=== PATIENT | female | born 1960 | race Caucasian/White ===

== ENCOUNTER 2016-12-14 18:56 | Emergency (ER) | payer MEDICARE, OTHER ==
[2016-12-14] MEDS ORDERED: Metoclopramide HCl 10 MG/2 ML VIAL ONE (19:22)
[2016-12-14] MEDS ORDERED: diphenhydrAMINE HCl 50 MG/ML 1 ML VIAL ONE (19:22)
[2016-12-14 19:43] LABS: #Basophils 0.1 thou/uL (0.0-0.2); #Eosinphils 0.2 thou/uL (0.0-0.7); #Lymphocytes 2.3 thou/uL (1.20-3.40); #Monocytes 0.6 thou/uL (0.11-0.59); #Neutrophils 4.1 thou/uL (1.40-6.50); %Eosinophils 2.8 % (0.0-10.0); %Lymphocytes 31.1 % (21.0-51.0); %Monocytes 8.3 % (0.0-10.0); %Neutrophils 56.8 % (42.0-75.0); Mean Corpuscular HGB CONC 33.3 g/dL (32.0-36.0); Mean Corpuscular Hemoglobin 27.9 pg (27.0-31.0); Mean Platelet Volume 8.3 fL (7.4-10.4); Platelet Count 231 thou/uL (130-400); RBC Distribution Width 13.4 % (11.5-14.5); Red Blood Cell (RBC) Count 3.58 mill/uL (4.20-5.40); White Blood Cell (WBC) Count 7.2 thou/uL (4.8-10.8)
[2016-12-14 19:45] LABS: Clarity Clear (Clear); Glucose, Urine (Dipstick) >=1000 mg/dL (Negative); Leukocyte Negative (Negative); Nitrite Negative (Negative); Protein, Urine (Dipstick) Negative (Neg-Trace); Urobilinogen 0.2 mg/dL (0.2-1.0)
[2016-12-14 19:46] LABS: Bilirubin Negative (Negative); Blood, Urine Negative (Negative)
[2016-12-14 19:51] LABS: Amphetamine Not Detected (NotDetected); Benzodiazepine Screen Not Detected (NotDetected); Cocaine Metabolite Screen Not Detected (NotDetected); Methadone Not Detected (NotDetected); Methamphetamine Not Detected (NotDetected); Opiate Screen Detected (NotDetected); Phencyclidine (PCP) Not Detected (NotDetected); THC/Cannabinoid Screen Not Detected (NotDetected); Tricyclic Screen Detected (NotDetected)
[2016-12-14 19:52] LABS: Barbiturates Screen Not Detected (NotDetected); Medtox Control Line Valid? VALID (VALID); Oxycodone Screen Not Detected (NotDetected)
[2016-12-14 19:57] LABS: ALT (SGPT) 13 U/L (8-55); AST (SGOT) 17 U/L (5-34); Albumin 3.1 g/dL (3.5-5.0); Alkaline Phosphatase 160 U/L (40-150); Anion Gap 12 mmol/L (10-20); BUN (Urea Nitrogen) 12 mg/dL (9.8-20.1); Bilirubin, Total Less than 0.3 mg/dL (0.2-1.2); CK (CPK) 25 U/L (29-168); Calc. Creatinine Clearance 0 mL/min (70-130); Calcium 8.3 mg/dL (7.8-10.44); Carbon Dioxide 27 mmol/L (22-29); Chloride 107 mmol/L (98-107); Estimated GFR-MDRD 81; Globulin 3.1 g/dL (2.4-3.5); Glucose 236 mg/dL (70-105); Protein, Total 6.2 g/dL (6.0-8.3); Sodium 142 mmol/L (136-145)
[2016-12-14 19:59] LABS: CKMB 0.8 ng/mL (0-6.6); Troponin I Less than 0.010 ng/mL (< 0.028)
--- NOTE | 2016-12-14 20:24 | RAD ---
THREE VIEWS OF THE LEFT SHOULDER 12/14/16 COMPARISON: None. HISTORY: Pain. FINDINGS: There is no widening of the AC or CC interspace. No displaced fracture noted. No evidence for disloc ation. IMPRESSION: No acute findings. POS: [facility]
--- NOTE | 2016-12-14 20:26 | CT ---
HEAD CT WITHOUT CONTRAST 12/14/16 COMPARISON: 08/03/16 HISTORY: Trauma, pain. TECHNIQUE: Serial axial CT imaging is obtained at 5 mm intervals from vertex through skull base without contras t. FINDINGS: The imaged paranasal sinuses and mastoid air cells are well aerated. There is no displaced calvarial fracture. No intracranial hemorrhage, midline shift, mass effect, or ventricular enlargement is seen. IMPRESSION: No intracranial hemorrhage or displaced calvarial fracture noted. POS: [facility]
--- NOTE | 2016-12-14 20:29 | CT ---
CT OF THE CERVICAL SPINE 12/14/16 COMPARISON: None. HISTORY: Trauma, pain. TECHNIQUE: Serial axial CT imaging at 2.5 mm intervals from the skull base through the lung apices without cont rast. Coronal and sagittal reformatted imaging obtained. FINDINGS: Anterior discectomy and fusion hardware is present at the C4-5/C5-6 levels. The C1 ring is intact. There is degenerative change at the atlantoaxial interspace. The craniocervic al junction is intact. The dens, occipital condyles, and C1-2 articulation demonstrate no acute find ings, There is no anterolisthesis or retrolisthesis seen within the cervical spine. No acute fracture or evidence of hardware failure is seen. Imaged lung apices are unremarkable. There is anterior osteophyte formation and disc space narrowing at C3-4. There is mild posterior ost eophyte formation at C4-5 and C5-6. There is left sided facet hypertrophy at the C7-T1 level. IMPRESSION: Postoperative and degenerative changes within the cervical spine. No displaced fracture or evidence of dislocation seen. POS: [facility]
[2016-12-14] MEDS ORDERED: Ketorolac Tromethamine 30 MG/ML VIAL ONE (20:32)
--- NOTE | 2016-12-14 20:35 | CT ---
CT OF THE THORACIC SPINE 12/14/16 COMPARISON: None. HISTORY: Trauma, pain. TECHNIQUE: Serial axial CT imaging is obtained at 2.5 mm intervals through the thoracic spine without contrast. Coronal and sagittal reformatted imaging obtained. FINDINGS: Evaluation of the extraosseous structures is limited without contrast media. There is an incompletely imaged suture line associated with the stomach. The imaged lung parenchyma is grossly unremarkable. There is scattered areas of lateral osteophyte formation and anterior osteophyte formation within th e thoracic spine, primarily the mid/lower thoracic spine. Sagittal reformatted imaging demonstrates normal vertebral body height and alignment throughout the thoracic spine. Multiple subcentimeter nonobstructing bilateral renal calculi are noted. No acute thoracic spine fracture or dislocation is evident. IMPRESSION: No acute fracture or dislocation is seen involving the thoracic spine. Numerous incidental findings as detailed above. POS: [facility]
--- NOTE | 2016-12-14 20:41 | CT ---
LUMBAR SPINE CT NONCONTRAST 12/14/16 CLINICAL HISTORY: Posttraumatic pain. FINDINGS: There is mild left convexity curvature of the lumbar spine. There is no evidence of acute compressio n fracture. Trace spondylolisthesis at the L4-5 level is present. Multilevel end plate degenerative changes are present, greatest at the L2-3 and L5-S1 level. The gas vacuum phenomenon at L5-S1. Multi level facet osteoarthritis is present. There is no retropulsion of bone into the vertebral canal. Incidental note of bilateral nephrolithiasis. There is vascular calcification. IMPRESSION: No acute lumbar spine fracture. POS: [facility]
--- NOTE | 2016-12-14 20:45 | RAD ---
TWO VIEWS LEFT HIP 12/14/16 COMPARISON: None. HISTORY: Left hip pain. FINDINGS: There is mild lateral acetabular osteophyte formation and superior joint space narrowing. There is n o displaced fracture or dislocation seen. IMPRESSION: Mild degenerative joint disease. No acute fracture or dislocation noted. POS: [facility]
--- NOTE | 2016-12-14 20:48 | RAD ---
FOUR VIEWS LEFT KNEE 12/14/16 COMPARISON: 02/25/15. HISTORY: Pain, trauma. FINDINGS: Stable left total knee arthroplasty. No evidence for hardware failure. No fracture or dislocation. N o interval change. IMPRESSION: Stable left total knee arthroplasty. No evidence for acute fracture or dislocation is seen. POS: [facility]
--- NOTE | 2016-12-14 20:51 | RAD ---
THREE VIEWS OF THE RIGHT WRIST 12/14/16 COMPARISON: None. HISTORY: Wrist pain. FINDINGS: There is degenerative change at the first metacarpophalangeal joint. There is mild radiocarpal joint space narrowing. There is no widening of the scapholunate interval. No displaced fracture or disloc ation is seen. IMPRESSION: No acute osseous abnormality. If symptoms persists, followup in 7-10 days with dedicated scaphoid vi ews advised. POS: [facility]
[2016-12-14] MEDS ORDERED: Amitriptyline HCl 25 MG TAB PO SCH (21:00)
== END 2016-12-14 21:55 | disposition home or self-care (01) ==
LOC: MADERS 18:56
DX: S40.012A Contusion of left shoulder, initial encounter (principal); S70.02XA Contusion of left hip, initial encounter; M25.562 Pain in left knee; G43.809 Other migraine, not intractable, without status migrainosus; E11.40 Type 2 diabetes mellitus with diabetic neuropathy, unspecified; K21.9 Gastro-esophageal reflux disease without esophagitis; M10.9 Gout, unspecified; F41.9 Anxiety disorder, unspecified; F32.9 Major depressive disorder, single episode, unspecified; Z79.899 Other long term (current) drug therapy; Z79.4 Long term (current) use of insulin; W01.190A Fall on same level from slipping, tripping and stumbling with subsequent striking against furniture, initial encounter
CPT/HCPCS: 51701; 70450; 72125; 72128; 72131; 80053; 80306; 81003; 82550; 82553; 84484; 85025; 93005; 96374; 96375; A4353; J1200; J1885; J2765

== ENCOUNTER 2017-01-30 15:05 | Emergency (ER) | payer MEDICARE, OTHER ==
[2017-01-30] MEDS ORDERED: diphenhydrAMINE HCl 25 MG CAP ONE (16:00)
== END 2017-01-30 16:00 | disposition home or self-care (01) ==
LOC: MADERS 15:05
DX: H57.8 Other specified disorders of eye and adnexa (principal); E11.40 Type 2 diabetes mellitus with diabetic neuropathy, unspecified; K21.9 Gastro-esophageal reflux disease without esophagitis; M10.9 Gout, unspecified; F41.9 Anxiety disorder, unspecified; F32.9 Major depressive disorder, single episode, unspecified; Z79.4 Long term (current) use of insulin; Z86.718 Personal history of other venous thrombosis and embolism
CPT/HCPCS: 99283

== ENCOUNTER 2017-02-05 08:30 | Outpatient (CLI) | payer MEDICARE, OTHER ==
[2017-02-05 09:49] LABS: Hemoglobin A1c 8.8 % (4.0-6.0)
[2017-02-05 10:36] LABS: ALT (SGPT) 10 U/L (8-55); AST (SGOT) 13 U/L (5-34); Albumin 3.3 g/dL (3.5-5.0); Alkaline Phosphatase 134 U/L (40-150); Anion Gap 12 mmol/L (10-20); BUN (Urea Nitrogen) 19 mg/dL (9.8-20.1); Bilirubin, Total 0.5 mg/dL (0.2-1.2); Calc. Creatinine Clearance 0 mL/min (70-130); Calcium 9.1 mg/dL (7.8-10.44); Carbon Dioxide 32 mmol/L (22-29); Cardiac Risk 3.6 (Less than 4.5); Chloride 102 mmol/L (98-107); Cholesterol 153 mg/dl (< 200 Desired); Estimated GFR-MDRD 65; Globulin 3.4 g/dL (2.4-3.5); Glucose 114 mg/dL (70-105); HDL Cholesterol 42 mg/dL (>60 Neg Risk); LDL Cholesterol, Calculated 98 mg/dL; Potassium 4.3 mmol/L (3.5-5.1); Protein, Total 6.7 g/dL (6.0-8.3); Sodium 142 mmol/L (136-145); Triglycerides 63 mg/dL (Less than 150)
[2017-02-05 18:07] LABS: Creatinine, Urine 188.59 mg/dL (47-110); Microalbumin Urine Less than 1.0 mg/dL (0.5-50.0); Microalbumin/Creat Ratio 5.3 mg/g (Less than 30)
== END 2017-02-05 08:31 | disposition home or self-care (01) ==
LOC: MADLAB 08:30
PROVIDERS: ATTEND Family Medicine
DX: E11.9 Type 2 diabetes mellitus without complications (principal)
CPT/HCPCS: 36415; 80053; 80061; 82043; 83036

== ENCOUNTER 2017-11-15 20:49 | Emergency (ER) | payer MEDICARE, BC ==
[2017-11-15] MEDS ORDERED: Clindamycin 150 MG CAP ONE (21:05)
[2017-11-15] MEDS ORDERED: Ondansetron ODT 4 MG TAB ONE ×2 (21:08→21:10)
== END 2017-11-15 21:10 | disposition home or self-care (01) ==
LOC: MADERS 20:49
DX: K13.0 Diseases of lips (principal); K02.9 Dental caries, unspecified; M79.7 Fibromyalgia; G89.29 Other chronic pain; M54.2 Cervicalgia; G47.30 Sleep apnea, unspecified; E11.40 Type 2 diabetes mellitus with diabetic neuropathy, unspecified; Z79.4 Long term (current) use of insulin; G56.00 Carpal tunnel syndrome, unspecified upper limb; K58.9 Irritable bowel syndrome, unspecified
CPT/HCPCS: 99283; Q0162

== ENCOUNTER 2018-01-07 08:15 | Outpatient (CLI) | payer BC, MEDICARE ==
[2018-01-07 09:02] LABS: ALT (SGPT) 13 U/L (8-55); AST (SGOT) 13 U/L (5-34); Albumin 3.6 g/dL (3.5-5.0); Alkaline Phosphatase 124 U/L (40-150); Anion Gap 13 mmol/L (10-20); BUN (Urea Nitrogen) 17 mg/dL (9.8-20.1); Bilirubin, Total 0.5 mg/dL (0.2-1.2); Calc. Creatinine Clearance 0 mL/min (70-130); Calcium 9.2 mg/dL (7.8-10.44); Carbon Dioxide 27 mmol/L (22-29); Cardiac Risk 2.2 (Less than 4.5); Chloride 109 mmol/L (98-107); Cholesterol 113 mg/dl (< 200 Desired); Estimated GFR-MDRD 81; Glucose 95 mg/dL (70-105); HDL Cholesterol 52 mg/dL (>60 Neg Risk); LDL Cholesterol, Calculated 49 mg/dL; Potassium 4.1 mmol/L (3.5-5.1); Protein, Total 6.6 g/dL (6.0-8.3); Sodium 145 mmol/L (136-145); Triglycerides 59 mg/dL (Less than 150)
[2018-01-07 17:21] LABS: Hemoglobin A1c 9.3 % (4.0-6.0)
== END 2018-01-07 08:16 ==
LOC: MADLABBHPM 08:15
PROVIDERS: ATTEND Family Medicine
DX: E11.9 Type 2 diabetes mellitus without complications (principal)
CPT/HCPCS: 36415; 80053; 80061; 83036

== ENCOUNTER 2018-03-13 08:11 | Outpatient (CLI) | payer MEDICARE ==
[2018-03-13] MEDS ORDERED: Iopamidol 370 76% 100 ML VIAL ONE (10:11)
--- NOTE | 2018-03-13 12:10 | CT ---
ABDOMEN CT WITH CONTRAST PELVIC CT WITH CONTRAST: Date: 03/13/18 COMPARISON: 09/17/17. HISTORY: Right upper quadrant pain. FINDINGS: Lung bases show dependent atelectatic changes. Heart size normal. No pericardial effusion. The descen ding thoracic aorta and abdominal aorta have a normal caliber. No periaortic fat stranding. Symmetric attenuation of psoas muscles. Gallbladder is surgically absent. Intra and extrahepatic portal vein is patent. Liver, spleen, pancreas, and adrenal glands have appropriate enhancement. There is evidence of previous bariatric surgical change. No evidence of abnormality in terms of the s tomach or proximal small bowel loops. Multiple mid to distal small bowel loops are opacified with con trast and have a normal appearance. Ileocecal junction is normal. Scattered fecal material in a nondi stended, nondilated colon. Occasional diverticulum. No diverticulitis. Normal caliber appendix is rita ntified. Mucosal prominence in the rectum is nonspecific. If there is concern for rectal malignancy, sigmoidoscopy is recommended. Nonobstructing calcifications in the left kidney measuring 1-6 mm. Bilaterally, no obstructive uropat hy. No mesenteric mass, lymphadenopathy, free air, or free fluid. Surgically absent uterus. No pelvic mass, lymphadenopathy, free air, or free fluid. Unremarkable urin roxy bladder. No lytic or blastic lesions in the osseous structures. Dorsal column stimulator is identified and is incompletely evaluated. IMPRESSION: 1. No acute abnormality in the abdomen or pelvis. 2. Questionable mucosal thickening involving the rectum. If there is concern, consider direct visual ization with sigmoidoscopy. POS: [facility]
== END 2018-03-13 08:12 | disposition home or self-care (01) ==
LOC: MADCT 08:11
PROVIDERS: ATTEND Family Medicine
DX: R10.10 Upper abdominal pain, unspecified (principal)
CPT/HCPCS: 36415; 74177; 82565

== ENCOUNTER 2018-04-13 09:48 | Emergency (ER) | payer MEDICARE ==
[2018-04-13] MEDS ORDERED: predniSONE 20 MG TAB ONE (10:10)
== END 2018-04-13 10:12 | disposition home or self-care (01) ==
LOC: MADERS 09:48
DX: T78.40XA Allergy, unspecified, initial encounter (principal); L29.9 Pruritus, unspecified
CPT/HCPCS: 99282; J7506

== ENCOUNTER 2018-10-09 11:34 | Outpatient (CLI) | payer MEDICARE ==
[2018-10-09 12:21] LABS: #Basophils 0.1 thou/uL (0.0-0.2); #Eosinphils 0.2 thou/uL (0.0-0.7); #Lymphocytes 1.5 thou/uL (1.20-3.40); #Monocytes 0.3 thou/uL (0.11-0.59); #Neutrophils 4.2 thou/uL (1.40-6.50); %Basophils 0.9 % (0.0-1.0); %Eosinophils 2.5 % (0.0-10.0); %Lymphocytes 23.6 % (21.0-51.0); %Monocytes 5.2 % (0.0-10.0); %Neutrophils 67.9 % (42.0-75.0); Hemoglobin 10.8 g/dL (12.0-16.0); Mean Corpuscular HGB CONC 31.3 g/dL (32.0-36.0); Mean Corpuscular Hemoglobin 27.6 pg (27.0-31.0); Mean Corpuscular Volume 88.3 fL (78.0-98.0); Mean Platelet Volume 7.4 fL (7.4-10.4); Platelet Count 310 thou/uL (130-400); RBC Distribution Width 13.9 % (11.5-14.5); White Blood Cell (WBC) Count 6.2 thou/uL (4.8-10.8)
[2018-10-09 16:48] LABS: Reticulocyte Count 1.2 % (0.5-1.5)
[2018-10-09 16:57] LABS: Iron 51 ug/dL (50-170); Iron Binding Capacity, Total 316 mcg/dL (265-497)
[2018-10-09 17:12] LABS: Ferritin 46.98 ng/mL (10-291)
[2018-10-09 17:26] LABS: Folate (Folic Acid) 13.5 ng/mL (7.0-31.4)
== END 2018-10-09 11:35 | disposition home or self-care (01) ==
LOC: MADLAB 11:34
PROVIDERS: ATTEND Family Medicine
DX: D64.9 Anemia, unspecified (principal); Z79.899 Other long term (current) drug therapy; Z98.84 Bariatric surgery status
CPT/HCPCS: 82607; 82728; 82746; 83540; 83550; 84443; 85025; 85046

== ENCOUNTER 2020-02-05 07:10 | Outpatient (CLI) | payer MEDICARE ==
[2020-02-05 07:46] LABS: #Basophils 0.1 thou/uL (0.0-0.2); #Eosinphils 0.3 thou/uL (0.0-0.7); #Lymphocytes 1.8 thou/uL (1.20-3.40); #Monocytes 0.4 thou/uL (0.11-0.59); #Neutrophils 4.1 thou/uL (1.40-6.50); %Lymphocytes 27.2 % (21.0-51.0); %Monocytes 6.5 % (0.0-10.0); %Neutrophils 61.3 % (42.0-75.0); Hemoglobin 10.6 g/dL (12.0-16.0); Mean Corpuscular HGB CONC 31.3 g/dL (32.0-36.0); Mean Corpuscular Hemoglobin 25.7 pg (27.0-31.0); Mean Corpuscular Volume 82.3 fL (78.0-98.0); Mean Platelet Volume 8.1 fL (7.4-10.4); Platelet Count 398 thou/uL (130-400); RBC Distribution Width 16.2 % (11.5-14.5); Red Blood Cell (RBC) Count 4.11 mill/uL (4.20-5.40); White Blood Cell (WBC) Count 6.7 thou/uL (4.8-10.8)
[2020-02-05 07:48] LABS: Albumin 3.4 g/dL (3.5-5.0); Bilirubin, Total 0.3 mg/dL (0.2-1.2); Calcium 8.6 mg/dL (7.8-10.44); Cardiac Risk 3.5 (Less than 4.5); Potassium 4.1 mmol/L (3.5-5.1)
[2020-02-05 08:09] LABS: Critical Call Chemistry 6.9; Globulin 3.5 g/dL (2.4-3.5); Protein, Total 6.9 g/dL (6.0-8.3)
[2020-02-05 11:23] LABS: Hemoglobin A1c 8.2 % (4.0-6.0)
== END 2020-02-05 07:11 | disposition home or self-care (01) ==
LOC: MADLAB 07:10
PROVIDERS: ATTEND Family Medicine
DX: E11.9 Type 2 diabetes mellitus without complications (principal)
CPT/HCPCS: 36415; 80053; 80061; 83036; 85025

== ENCOUNTER 2024-04-28 12:09 | Emergency (ER) | payer MEDICARE ==
[2024-04-28] MEDS ORDERED: Naloxone HCl 2 mg/2 ml Syringe ONE ×3 (12:11→15:12)
[2024-04-28 13:28] LABS: Band 13 % (5-11); Eosinophils 4 % (0-10); Hematocrit 37.5 % (36.0-47.0); Hemoglobin 11.3 g/dL (12.0-16.0); Lymphocytes 1 % (21-51); MDiff Complete? YES; Manual Diff?? YES; Mean Corpuscular HGB CONC 30.2 g/dL (32.0-36.0); Mean Corpuscular Hemoglobin 28.5 pg (27.0-31.0); Mean Corpuscular Volume 94.3 fl (78.0-98.0); Mean Platelet Volume 9.8 fL (7.4-10.4); Monocytes 4 % (0-10); Neutrophil 73 % (42-75); Platelet Count 221 10x3/uL (130-400); RBC Distribution Width 14.2 % (11.5-14.5); Reactive Lymphocytes 5 % (0-10); Red Blood Cell (RBC) Count 3.98 mill/uL (4.20-5.40); White Blood Cell (WBC) Count 6.2 10x3/uL (4.8-10.8)
[2024-04-28 13:29] LABS: Platelet Adequacy Comment Appears Adequate
[2024-04-28 13:32] LABS: ALT (SGPT) 121 U/L (8-55); AST (SGOT) 203 U/L (5-34); Albumin 2.8 g/dL (3.4-4.8); Alkaline Phosphatase 240 U/L (40-110); Anion Gap 23 mmol/L (10-20); BUN (Urea Nitrogen) 59 mg/dL (9.8-20.1); Bilirubin, Total 0.4 mg/dL (0.2-1.2); Calc. Creatinine Clearance 0 mL/min (70-130); Calcium 7.7 mg/dL (7.8-10.44); Carbon Dioxide 15 mmol/L (23-31); Chloride 110 mmol/L (98-107); Estimated GFR 13; Globulin 2.9 g/dL (2.4-3.5); Glucose 205 mg/dL (80-115); Potassium 5.8 mmol/L (3.5-5.1); Protein, Total 5.7 g/dL (5.8-8.1); Sodium 142 mmol/L (136-145)
[2024-04-28 13:34] LABS: Troponin I 0.051 ng/mL (< 0.028)
[2024-04-28] MEDS ORDERED: Dextrose 50% Abboject 50 ML SYRINGE ONE (13:45)
[2024-04-28] MEDS ORDERED: Calcium Gluc 4.6 MEQ/10 ML (100 MG/ML) ONE (13:45)
[2024-04-28] MEDS ORDERED: Insulin Regular, Human 100 UNIT/ML 10 ML VIAL ONE (13:46)
[2024-04-28] MEDS ORDERED: LevoFLOXacin D5W 500 mg (100 mL) BAG ONE (14:42)
[2024-04-28 15:00] LABS: Bilirubin Negative (Negative); Blood, Urine Large (Negative); Clarity Hazy (Clear); Glucose, Urine (Dipstick) 100 mg/dL (Negative); Ketone, Urine Negative (Negative); Leukocyte Small (Negative); Nitrite Negative (Negative); Protein, Urine (Dipstick) 100 mg/dL (Neg-Trace); Urobilinogen 0.2 mg/dL (Less than 2)
[2024-04-28 15:03] LABS: RBC/HPF 21-50 HPF (0-3)
[2024-04-28 15:04] LABS: Bacteria/HPF 1+ HPF (None Seen); CAUTI Indications for Culture Alt mental st,lethar
[2024-04-28 15:05] LABS: Urine Culture Reflex Yes Yes
== END 2024-04-28 15:55 | disposition short-term general hospital (02) ==
LOC: MADERS 12:09
DX: T50.7X1A Poisoning by analeptics and opioid receptor antagonists, accidental (unintentional), initial encounter (principal); N17.9 Acute kidney failure, unspecified; R41.82 Altered mental status, unspecified; E87.5 Hyperkalemia; E11.9 Type 2 diabetes mellitus without complications; Z79.84 Long term (current) use of oral hypoglycemic drugs; Z55.6 Problems related to health literacy
CPT/HCPCS: 51702; 70450; 71045; 80053; 81001; 82962; 84484; 85025; 87086; 93005; 96361; 96365; 96375; 96376; 99285; J0612; J1815; J1956; J2310; J7999; 36415; 36416

== ENCOUNTER → 2024-05-21 | Outpatient (CLI) | payer MEDICARE | LOC: MADRAD 10:40 | PROVIDERS: ATTEND Family Medicine | DX: R91.8 Other nonspecific abnormal finding of lung field (principal) | CPT/HCPCS: 71046 ==